=== PATIENT | female | born 1965 | race African-American/Black ===

== ENCOUNTER 2019-07-21 10:24 | Emergency (ER) | payer OTHER ==
--- OUTSIDE RECORDS SUMMARY | 2019-07-21 10:26 | XMS REPORT | Clinical Summary ---
:[address] [facility] Address [address] [place] [address] Care Team Providers Name Role Phone Rafael Dotson Primary Care Provider Allergies Active Allergy Reactions Severity Noted Date Comments Iodine And Iodide Containing Products 01/04/2015 Lidocaine 01/04/2015 Penicillins 01/04/2015 Medications Medication Sig Dispensed Refills Start Date End Date Status ALPRAZolam (XANAX) 0.25 Take 0.25 mg by 0 Active MG tablet mouth every night as needed for Anxiety. sertraline (ZOLOFT) 100 Take 100 mg by 0 Active MG tablet mouth daily. diphenhydrAMINE Take 25 mg by 0 Active (BENADRYL) 25 mg capsule mouth every 6 (six) hours as needed for Itching. cyclobenzaprine Take 10 mg by 0 Active (FLEXERIL) 10 MG tablet mouth 3 (three) times daily as needed for Muscle spasms. methylPREDNISolone follow package 1 Package 0 01/04/2015 Active (MEDROL DOSEPACK) 4 mg directions tablet Active Problems Not on file Social History Tobacco Use Types Packs/Day Years Used Date Light Tobacco Smoker Cigarettes Alcohol Use Drinks/Week oz/Week Comments No Sex Assigned at Date Recorded Not on file Job Start Date Occupation Industry Not on file Not on file Not on file Travel History Travel Start Travel End No recent travel history available. Last Filed Vital Signs Not on file Plan of Treatment Not on file Results Not on fileafter 07/20/2018 Insurance Payer Benefit Plan / Group Subscriber ID Type Phone Address HUMANA - MEDICARE MGD HU[employer] GOLD CHOICE xxxxxxxxx Maps Contracted CARE PFFS
--- OUTSIDE RECORDS SUMMARY | 2019-07-21 10:26 | XMS REPORT | Clinical Summary ---
:1965 Author Organization [facility] Address [address] [place] [address] Care Team Providers Name Role Phone Sara Finn MD Primary Care Provider Allergies Active Allergy Reactions Severity Noted Date Comments Iodine Shortness Of Breath High 01/30/2017 Latex Rash Low 01/30/2017 Lidocaine 02/22/2017 Naproxen Hives 01/30/2017 Penicillin G 02/22/2017 Medications Medication Sig Dispensed Refills Start Date End Date Status HYDROcodone-acetaminophe Take 1 tablet by 0 12/21/2016 Active n (NORCO) 10-325 mg per mouth 3 (three) tablet times a day. ziprasidone (GEODON) 80 Take 1 capsule 2 01/21/2017 Active MG capsule by mouth daily. ALPRAZolam (XANAX) 2 MG Take 2 mg by 0 Active tablet mouth nightly as needed for anxiety. zolpidem (AMBIEN) 10 mg Take 1 tablet by 2 01/21/2017 Active tablet mouth nightly. cyanocobalamin 1000 MCG Take 1,000 mcg 0 Active tablet by mouth daily. promethazine-codeine Take 5 mL by 0 Active (PHENERGAN with CODEINE) mouth every 4 6.25-10 mg/5 mL syrup (four) hours as needed for cough. Active Problems No known active problems Family History Medical History Relation Name Comments Cancer Maternal Grandfather Coronary artery disease Maternal Grandfather Alcohol abuse Mother Cancer Sister Relation Name Status Comments Maternal Grandfather Mother Sister Social History Tobacco Use Types Packs/Day Years Used Date Current Every Day Smoker 1 Smokeless Tobacco: Never Used Alcohol Use Drinks/Week oz/Week Comments No Occasionally Sex Assigned at Date Recorded Not on file Job Start Date Occupation Industry Not on file Not on file Not on file Travel History Travel Start Travel End No recent travel history available. Last Filed Vital Signs Not on file Plan of Treatment Health Maintenance Due Date Last Done Comments CERVICAL CANCER SCREENING 1984 BREAST CANCER SCREENING 2013 COLONOSCOPY SCREENING 2013 SHINGLES VACCINES (#1) 2013 INFLUENZA VACCINE 06/25/2019 Results Not on fileafter 07/20/2018
--- OUTSIDE RECORDS SUMMARY | 2019-07-21 10:27 | XMS REPORT ---
:1965 Author Organization [facility] Address [address] [place] [address] Care Team Providers Name Role Phone NONE, NONME Unavailable Unavailable DR HETAL PARISH Unavailable Unavailable MARINO SALEH Unavailable Unavailable DR ERIBERTO MURPHY Unavailable Unavailable Problems This patient has no known problems. Allergies, Adverse Reactions, Alerts This patient has no known allergies or adverse reactions. Medications This patient has no known medications. Encounters Start End Encounter Admission Attending Care Care Encounter Date/Time Date/Time Type Type Clinicians Facility Department ID 2019-05-01 2019-05-01 Outpatient C NONE, NONME [facility] [id number] 06:38:00 23:59:00 2018-09-19 2018-09-19 Emergency E HETAL PARISH [facility] [id number] 09:53:00 12:15:00 2018-08-25 2018-08-25 Emergency E THERESE [facility] [id number] 13:13:00 14:20:00 MARINO 2018-06-24 2018-06-24 Emergency E KATHERINE [facility] [id number] 16:25:00 19:15:00 ERIBERTO Results Test Description Test Time Test Comments Text Results Atomic Results Result Comments PRO TIME AND PTT *WW* 2018-09-19 11:49:00 Test Item Value Reference Range Comments PT (test code=TT) 10.8 s 9.8-13.6 INR (test code=INR) 0.9 INRH (test code=INRH) SUGGESTED THERAPEUTIC RANGE FOR INR: 2.5 - 3.5 For Patients with Prosthetic Valves or Patients with recurrent Thromboembolic Events 2.0 - 3.0 For Most Other Applications PTT (test code=PTT) 30.0 s 20.2-38.0 PTTH (test code=PTTH) To monitor the effectiveness of heparin, we offer the Anti-Xa (Heparin Assay). It can be used for either unfractionated or LMW Heparin. Order Code is ANTI-XA DRUGS OF ABUSE *WW*2018-09-19 11:35:00 Test Item Value Reference Range Comments DRUG SCRN (test code=HDOA) URINE DRUG SCREEN This is an unconfirmed screening result and should not be used for non-medical purposes CANNABINOD (test code=88C) Negative NEGATIVE AMPHETAMINE (test code=84A) Negative NEGATIVE BENZODIAZP (test code=86A) POSITIVE NEGATIVE BARBITURAT (test code=85A) Negative NEGATIVE OPIATES (test code=92B) POSITIVE NEGATIVE COCAINE (test code=87A) Negative NEGATIVE PHENCYCLID (test code=66A) Negative NEGATIVE METHADONE (test code=64A) Negative NEGATIVE DOAH (test code=DOAH) URINE DRUG CREEN CUT OFF VALUES Amphetamines 1000 ng/mL Barbituates 300 ng/mL Benzodiazepines 300 ng/mL Cocaine 300 ng/mL Opiates 300 ng/mL Phencyclidine 25 ng/mL THC 50 ng/mL Tricyclic Antidepressants 1000 ng/mL URINALYSIS *WW*2018-09-19 11:31:00 Test Item Value Reference Range Comments COLOR (test code=COLU) YELLOW YELLOW CLARITY (test code=CLA) CLEAR CLEAR GLUCOSE UR (test code=UA GLUCOSE) NEGATIVE NEGATIVE BILI UR (test code=BILE) NEGATIVE NEGATIVE KETONES UR (test code=YUDITH) NEGATIVE NEGATIVE SP GRAVITY (test code=SPGR) 1.025 1.005-1.030 PH UR (test code=PH) 6.0 4.5-8.0 PROTEIN UR (test code=PU) NEGATIVE NEGATIVE UROBIL UR (test code=UROQ) 0.2 EU/dL 0.2-1.0 NITRITE UR (test code=NITRITE) NEGATIVE NEGATIVE BLOOD UR (test code=UA BLOOD) NEGATIVE NEGATIVE LEUK ES UR (test code=LEUK) NEGATIVE NEGATIVE AUAM (test code=WAUAM) NO NO COMPREHENSIVE METABOLIC DEWEY *WW*2018-09-19 11:26:00 Test Item Value Reference Range Comments GLUCOSE (test code=06D) 105 mg/dL 75-100 SODIUM (test code=01A) 142 mmol/L 136-145 POTASSIUM (test code=01B) 4.0 mmol/L 3.6-5.1 CHLORIDE (test code=04A) 105 mmol/L 98-107 CO2 (test code=02A) 32 mmol/L 22-32 ANION GAP (test code=ANG) 9.0 mmol/L BUN (test code=05D) 11 mg/dL 7-18 CREATININE (test code=03E) 0.6 mg/dL 0.4-1.1 BUN/CREA (test code=BCR) 18 12-20 CALCIUM (test code=09D) 8.5 mg/dL 8.3-9.5 BILI TOTAL (test code=11A) 0.2 mg/dL 0.2-1.0 PROTEIN (test code=07D) 6.6 g/dL 6.4-8.2 ALBUMIN (test code=08D) 3.2 g/dL 3.5-4.8 GLOBULIN (test code=GLB) 3.3 g/dL 1.5-3.8 ALB/GLOB (test code=AGRR) 0.9 1.0-2.6 ALK PHOS (test code=35A) 75 IU/L 42-121 AST (test code=30A) 13 IU/L <=42 ALT (test code=31A) 17 IU/L <=78 CARDIAC PROFILE *WW*2018-09-19 11:17:00 Test Item Value Reference Range Comments TROPONIN I (test code=A84) <0.015 ng/mL 0.000-0.045 D-DIMER *WW*2018-09-19 11:12:00 Test Item Value Reference Range Comments D-DIMER (test code=DDI) 239 ng/mL D-DU 0-234 D-DIMER COMMENT (test *Level to rule out DVT or PE: code=DDCOM) <235 ng/mL D-DU* CBC (INCLUDES AUTOMATED DIFFERENTIAL)*[id number] 10:58:00 Test Item Value Reference Range Comments WBC (test code=WBC) 6.2 10\S\3/uL 4.5-11.0 RBC (test code=RBC) 4.56 10\S\6/uL 4.20-5.60 HGB (test code=HBG) 12.6 g/dL 12.0-15.5 HCT (test code=HCT) 39.5 % 35.0-44.0 MCV (test code=MCV) 86.6 fL 81.0-99.0 MCH (test code=MCH) 27.6 pg 27.0-31.0 MCHC (test code=MCHC) 31.9 g/dL 32.0-36.0 RDW (test code=RDW) 14.9 % 11.5-14.5 PLT (test code=PLT) 225 10\S\3/uL 130-400 MPV (test code=MPV) 10.8 fL 9.4-12.4 NEUTROP # (test code=NE#) 2.8 10\S\3/uL 1.6-8.0 LYMPH # (test code=LY#) 2.6 10\S\3/uL 1.1-3.5 MONOCYTE # (test code=MO#) 0.7 10\S\3/uL 0.0-1.1 EOSINOPH # (test code=EO#) 0.1 10\S\3/uL 0.0-0.7 BASOPHIL # (test code=BA#) 0.0 10\S\3/uL 0.0-0.3 IG # (test code=IG#) 0.01 10\S\3/uL 0.00-0.06 NRBC # (test code=NRBC#) 0.00 10\S\3/uL 0.00-0.01 NEUTROPH % (test code=NE%) 45.0 % 35.0-73.0 LYMPH % (test code=LY%) 41.5 % 20.0-55.0 MONO % (test code=MO%) 10.7 % 2.5-10.0 EOSINOPH % (test code=EO%) 2.3 % 0.0-5.0 BASOPHIL % (test code=BA%) 0.3 % 0.0-2.0 IG % (test code=IG%) 0.2 % 0.0-0.8 NRBC% (test code=NRBC%) 0.0 % 0.0-0.2 MANDIFF (test code=WMDIFF) NO NO RBC MORPH (test code=WRBCMOR) NORMAL XR CHEST 1 VIEW PORTABLE 2018-09-19 10:30:24Portable AP chest, 1 viewLocation Code: [id number] HISTORY: chest pain / sobCOMPARISON: NoneCOMMENT: The lungs are clear and well inflated. The costophrenic angles are sharp. Thecardiomediastinal silhouette is unremarkable. The bones are intact.IMPRESSION : No acute abnormalityXR ANKLE RIGHT COMPLETE 3 VIEWS 2018-08-25 14:11: 18Right ankle, 3 viewsLocation Code: [id number] HISTORY: Painful swelling of jointCOMMENTS: AP, lateral, and oblique views of the right ankle demonstrate noacute fracture or malalignment. The soft tissues are unremarkable.IMPRESSION: No acute radiographic abnormality.XR KNEE RIGHT 3 VIEWS 2018-08-25 14:10: 30Right knee, 3 viewsLocation Code: [id number] HISTORY: Painful swelling of jointCOMMENTS: AP, lateral, and oblique views of the right knee demonstrate no acutefracture or malalignment. There is marked joint space narrowing withsubchondral sclerosis and osteophyte formation. The soft tissues areunremarkable.IMPRESSION: Moderate to severe tricompartmental osteoarthritis with otherwiseno acute radiographic abnormality.U/S VENOUS DOPPLER ULICES LOW EXT* *2018-06-24 18:42:30EXAM: Bilateral lower extremity venous DopplerHISTORY: R60.0: LOCALIZED EDEMATECHNIQUE: Grayscale real-time B-mode imaging with color flow and spectralflow Doppler analysis was performed of bilateral lower extremities.COMPARISON: NoneFINDINGS: Limited exam due to body habitus.There is normal compressibility with no evidence of thrombus in the visualizedvenous structures of bilateral lower extremities.The vessels imaged include bilateral common femoral, superficial femoral,popliteal, proximal profunda femoral, and greater saphenous veins. The peroneal and posterior tibial veins were seen as well.IMPRESSION:No evidence of deep venous thrombosis within the visualized venous structuresof bilateral lower extremities.D-DIMER *WW*2018-06-24 17:58:00 Test Item Value Reference Range Comments D-DIMER (test code=DDI) <200 ng/mL D-DU 0-234 D-DIMER COMMENT (test *Level to rule out DVT or PE: code=DDCOM) <235 ng/mL D-DU* PRO TIME AND PTT *WW*2018-06-24 17:43:00 Test Item Value Reference Range Comments PT (test code=TT) 10.0 s 9.8-13.6 INR (test code=INR) 0.9 INRH (test code=INRH) SUGGESTED THERAPEUTIC RANGE FOR INR: 2.5 - 3.5 For Patients with Prosthetic Valves or Patients with recurrent Thromboembolic Events 2.0 - 3.0 For Most Other Applications PTT (test code=PTT) 30.3 s 20.2-38.0 PTTH (test code=PTTH) To monitor the effectiveness of heparin, we offer the Anti-Xa (Heparin Assay). It can be used for either unfractionated or LMW Heparin. Order Code is ANTI-XA CARDIAC PROFILE *WW*2018-06-24 17:42:00 Test Item Value Reference Range Comments TROPONIN I (test code=A84) <0.015 ng/mL 0.000-0.045 CKMB (test code=A49) 1.0 ng/mL <=3.6 CPK (test code=32A) 123 IU/L 26-192 BRAIN NATRIURETIC PROTEIN *WW*2018-06-24 17:42:00 Test Item Value Reference Range Comments proBNP (test code=PBNP) 70 pg/mL 0-125 COMPREHENSIVE METABOLIC DEWEY *WW*2018-06-24 17:39:00 Test Item Value Reference Range Comments GLUCOSE (test code=06D) 131 mg/dL 75-100 SODIUM (test code=01A) 143 mmol/L 136-145 POTASSIUM (test code=01B) 3.6 mmol/L 3.6-5.1 CHLORIDE (test code=04A) 106 mmol/L 98-107 CO2 (test code=02A) 32 mmol/L 22-32 ANION GAP (test code=ANG) 8.8 mmol/L BUN (test code=05D) 9 mg/dL 7-18 CREATININE (test code=03E) 0.6 mg/dL 0.4-1.1 BUN/CREA (test code=BCR) 15 12-20 CALCIUM (test code=09D) 8.4 mg/dL 8.3-9.5 BILI TOTAL (test code=11A) 0.2 mg/dL 0.2-1.0 PROTEIN (test code=07D) 6.6 g/dL 6.4-8.2 ALBUMIN (test code=08D) 3.1 g/dL 3.5-4.8 GLOBULIN (test code=GLB) 3.5 g/dL 1.5-3.8 ALB/GLOB (test code=AGRR) 0.9 1.0-2.6 ALK PHOS (test code=35A) 70 IU/L 42-121 AST (test code=30A) 13 IU/L <=42 ALT (test code=31A) 20 IU/L <=78 CBC (INCLUDES AUTOMATED DIFFERENTIAL)*[id number] 17:36:00 Test Item Value Reference Range Comments WBC (test code=WBC) 6.6 10\S\3/uL 4.5-11.0 HGB (test code=HBG) 11.8 g/dL 12.0-15.5 HCT (test code=HCT) 37.0 % 35.0-44.0 MCV (test code=MCV) 87.7 fL 81.0-99.0 MCH (test code=MCH) 28.0 pg 27.0-31.0 MCHC (test code=MCHC) 31.9 g/dL 32.0-36.0 RDW (test code=RDW) 15.7 % 11.5-14.5 PLT (test code=PLT) 197 10\S\3/uL 130-400 MPV (test code=MPV) 10.9 fL 9.4-12.4 NEUTROP # (test code=NE#) 3.2 10\S\3/uL 1.6-8.0 LYMPH # (test code=LY#) 2.5 10\S\3/uL 1.1-3.5 MONOCYTE # (test code=MO#) 0.8 10\S\3/uL 0.0-1.1 EOSINOPH # (test code=EO#) 0.2 10\S\3/uL 0.0-0.7 BASOPHIL # (test code=BA#) 0.0 10\S\3/uL 0.0-0.3 IG # (test code=IG#) 0.02 10\S\3/uL 0.00-0.06 NRBC # (test code=NRBC#) 0.00 10\S\3/uL 0.00-0.01 NEUTROPH % (test code=NE%) 47.9 % 35.0-73.0 LYMPH % (test code=LY%) 37.7 % 20.0-55.0 MONO % (test code=MO%) 11.5 % 2.5-10.0 EOSINOPH % (test code=EO%) 2.3 % 0.0-5.0 BASOPHIL % (test code=BA%) 0.3 % 0.0-2.0 IG % (test code=IG%) 0.3 % 0.0-0.8 NRBC% (test code=NRBC%) 0.0 % 0.0-0.2 MANDIFF (test code=WMDIFF) NO NO RBC MORPH (test code=WRBCMOR) NORMAL URINALYSIS *WW*2018-06-24 17:28:00 Test Item Value Reference Range Comments COLOR (test code=COLU) YELLOW YELLOW CLARITY (test code=CLA) CLEAR CLEAR GLUCOSE UR (test code=UA GLUCOSE) NEGATIVE NEGATIVE BILI UR (test code=BILE) NEGATIVE NEGATIVE KETONES UR (test code=YUDITH) NEGATIVE NEGATIVE SP GRAVITY (test code=SPGR) 1.025 1.005-1.030 PH UR (test code=PH) 6.0 4.5-8.0 PROTEIN UR (test code=PU) NEGATIVE NEGATIVE UROBIL UR (test code=UROQ) 0.2 EU/dL 0.2-1.0 NITRITE UR (test code=NITRITE) NEGATIVE NEGATIVE BLOOD UR (test code=UA BLOOD) NEGATIVE NEGATIVE LEUK ES UR (test code=LEUK) NEGATIVE NEGATIVE AUAM (test code=WAUAM) NO NO
--- OUTSIDE RECORDS SUMMARY | 2019-07-21 10:27 | XMS REPORT | Summary of Care ---
:1965 Author Name YAMILETH Meza, DAYNA Address Unavailable Unavailable , Care Team Providers Name Role Phone TRINIDAD Meza, BILLIE Unavailable Unavailable YADY Meza, CHRISTI Unavailable Unavailable YAMILETH Meza, DAYNA Unavailable Unavailable TOÑITO Meza, ORA Unavailable Unavailable TRINIDAD SMITH, BILLIE Unavailable Unavailable YADY SMITH DE, CHRISTI Unavailable Unavailable YAMILETH CUETO MD DE, DAYNA Merchant Unavailable Unavailable Omar Avila MD Unavailable Unavailable MARYAN CARD FILER DE, TREVER Live Unavailable Unavailable DUTCH DO, ILSA R Unavailable Unavailable BIJOU CARD FILER, JANENAE F Unavailable Unavailable BOLANOS SENIOR WIND TURBINE TECHNICIAN, KLEVER Veloz Unavailable Unavailable BIJOU N.P., JERDAMASO Unavailable Unavailable YAO CARD FILER, ANIKET K Unavailable Unavailable Unavailable Unavailable Unavailable Functional Status Name Dates Details Functional status health issues are not documented Status: Name Dates Details Cognitive status health issues are not documented Status: Problems Name Dates Details Caloric malnutrition (263.9, E46) Status: Active Lumbar strain (847.2, S39.012A) Status: Active Sciatic pain, left (724.3, M54.32) Status: Active Acid reflux (530.81, K21.9) Status: Active Right wrist pain (719.43, M25.531) Status: Active Right knee pain (719.46, M25.561) Status: Active History of hepatitis C (V12.09, Z86.19) Status: Active Need for hepatitis A vaccination (V05.3, Z23) Status: Active Need for hepatitis B vaccination (V05.3, Z23) Status: Active Cervical radiculopathy (723.4, M54.12) Status: Active Influenza vaccination declined (V64.06, Z28.21) Status: Active Influenza vaccination declined (V64.06, Z28.21) Status: Active Sore throat (462, J02.9) Status: Active Acute streptococcal pharyngitis (034.0, J02.0) Status: Active Mild intermittent asthma with acute exacerbation (493.92, J45.21) Status: Active Primary localized osteoarthritis of right knee (715.16, M17.11) Status: Active Viral gastroenteritis (008.8, A08.4) Status: Active Body aches (780.96, R52) Status: Active Fatigue (780.79, R53.83) Status: Active Anxiety (300.00, F41.9) Status: Active Bipolar disorder (296.80, F31.9) Status: Active Failed total left knee replacement, 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 Quantity: 30 Refills: 3 CHRISTI CONTHE M.D. Start : 15-May-2017 Active Zolpidem Tartrate 10 MG Oral Tablet TAKE 1 TABLET BY MOUTH AT BEDTIME Quantity: 30 Refills: 0 CHRISTI CONTEH M.D. Start : 23-Feb-2019 Active ALPRAZolam 1 MG Oral Tablet TAKE ONE-HALF TO 1 TABLET BY MOUTH TWICE DAILY Quantity: 60 Refills: 1 CHRISTI CONTEH M.D. Start : 29-May-2017 Active FLUoxetine HCl - 40 MG Oral Capsule TAKE 1 CAPSULE DAILY Quantity: 30 Refills: 3 CHRISTI CONTEH M.D. Start : 06-Jun-2017 Active Nystop 572579 UNIT/GM External Powder APPLY 2- 3 TIMES EVERY DAY TO AFFECTED AREA(S). AFTER COMPLETION OF CREAM Quantity: 180 Refills: 0 BILLIE ABDI M.D. Start : 28-Nov-2018 Active Fluocinolone Acetonide 0.025 % External Cream APPLY SPARINGLY TO AFFECTED AREA(S) TWICE DAILY Quantity: 1 Refills: 0 DAYNA CARSON M.D. Start : 15-Jan-2018 Active 60 GM Tube Pennsaid 2 % Transdermal Solution 2 PUMPS TWICE DAILY TO THE EFFECTED AREA Quantity: 1 Refills: 0 ORA SIBLEY M.D. Start : 18-Jun-2018 Active 112 GM Pump Btl ProAir HFA 108 (90 Base) MCG/ACT Inhalation Aerosol Solution INHALE 1 TO 2 PUFFS EVERY 4 TO 6 HOURS NEEDED. Quantity: 1 Refills: 2 R.N.Active 8.5 GM Inhaler Combivent Respimat 20-100 MCG/ACT Inhalation Aerosol Solution INHALE 2 PUFFS DAILY Refills: 0 R.N.Active 4 GM Inhaler Allergies and Adverse Reactions Name Dates Details Adhesive Tape TAPE (Allergy) Status: Active Iodinated Contrast Media (Allergy) Status: Active Latex Gloves MISC (Allergy) Status: Active Naproxen TABS (Allergy) Status: Active Penicillins (Allergy) Status: Active Procaine HCl SOLN (Allergy) Status: Active Past Medical History Name Dates Details History of Acute recurrent maxillary sinusitis (461.0, J01.01) Status: Resolved History of Acute suppurative otitis media of left ear with spontaneous rupture of tympanic membrane, recurrence not specified (382.01, H66.012) Status: Resolved History of Antibiotic-induced yeast infection (112.9, B37.9) Status: Resolved History of Body aches (780.96, R52) Status: Resolved History of Chronic pruritic rash in adult (698.8, L29.8) Status: Resolved History of cough Status: Resolved History of Encounter to establish care (V65.8, Z76.89) Status: Resolved History of Failed total knee, left, sequela (909.3, T84.093S) Status: Resolved History of Failed total knee, left, subsequent encounter (V58.89, T84.093D) Status: Resolved History of Follow up (V67.9, Z09) Status: Resolved History of hepatitis B virus infection (V12.09, Z86.19) Status: Resolved History of intestinal malabsorption (V12.79, Z87.19) Status: Resolved History of Left lower quadrant abdominal pain of unknown etiology (789.04, R10.32) Status: Resolved History of malnutrition (V12.1, Z86.39) Status: Resolved History of Need for Tdap vaccination (V06.1, Z23) Status: Resolved History of persistent cough (V12.69, Z87.09) Status: Resolved History of Preoperative clearance (V72.84, Z01.818) Status: Resolved History of Routine lab draw (V72.60, Z01.89) Status: Resolved History of screening mammography (V15.89, Z92.89) Status: Resolved History of screening mammography (V15.89, Z92.89) Status: Resolved History of sore throat (V12.60, Z87.09) Status: Resolved History of tinea cruris (V12.09, Z86.19) Status: Resolved History of Trapezius muscle spasm (728.85, M62.838) Status: Resolved History of Vulvar itching (698.1, L29.2) Status: Resolved History of Well woman exam (V72.31, Z01.419) Status: Resolved History of Wrist pain, acute, right (719.43, M25.531) Status: Resolved Procedures Procedure Dates Details History of Shoulder replacement Completed History of Back surgery Completed History of Total hysterectomy abdominal Completed History of Knee replacement Completed Immunization Name Dates Details Tdap (Boostrix) on: 06-Aug-2017 Lot #: [id number] Engerix-B 10 MCG/0.5ML Intramuscular Injectable on: 07-Oct-2018 Lot #: [id number] Hepatitis A, adult on: 07-Oct-2018 Lot #: [id number] Family History Name Dates Details Family history of alcohol abuse (V61.41, Z81.1) Comments: Maternal Relatives Status: Active Family history of alcohol abuse (V61.41, Z81.1) Comments: Paternal Relatives Status: Active Name Dates Details Family history of rheumatoid arthritis (V17.7, Z82.61) Status: Active Name Dates Details Family history of neoplasm of brain (V19.8, Z84.89) Status: Active Family history of malignant neoplasm of prostate (V16.42, Z80.42) Status: Active Name Dates Details Family history of Anxiety (300.00, F41.9) Status: Active Family history of malignant neoplasm of breast (V16.3, Z80.3) Status: Active Social History Name Dates Details - Status: Name Dates Details Smoker. current status unknown Vital Signs Date Test Result Details No Known Vitals to report Results Date Description Value Details Results not documented Plan of Care Name Dates Details Planned Observations Planned Goals not documented Planned Encounters Appointment; DAYNA CARSON M.D. On: 16-Jul-2019 11:15 Appointment; DAYNA CARSON M.D. On: 17-Sep-2019 10:45 Instructions Name Dates Details Instructions not documented Encounters Appointment; BILLIE ABDI M.D. On: 09-Jul-2017 11:15 Encounter Diagnosis: Problem not documented Appointment; ANIKET CASTELLANOS, PHD On: 10-Jul-2017 10:30 Encounter Diagnosis: Problem not documented Appointment; LIAN SAHA M.D. On: 12-Jul-2017 10:00 Encounter Diagnosis: Problem not documented Appointment; LIZ SEAY P.A. On: 02-Aug-2017 10:15 Encounter Diagnosis: Problem not documented Appointment; CHRISTI CONTEH M.D. On: 05-Aug-2017 8:00 Encounter Diagnosis: Problem not documented Appointment; BILLIE ABDI M.D. On: 06-Aug-2017 9:30 Encounter Diagnosis: Problem not documented Appointment; ANIKET CASTELLANOS, PHD On: 06-Aug-2017 10:30 Encounter Diagnosis: Problem not documented Appointment; GIOVANNY CLEVELAND D.O. On: 16-Aug-2017 9:00 Encounter Diagnosis: Problem not documented Appointment; DAYNA CARSON M.D. On: 28-Aug-2017 10:30 Encounter Diagnosis: Problem not documented Appointment; LIAN SAHA M.D. On: 13-Sep-2017 9:00 Encounter Diagnosis: Problem not documented Appointment; ORA SIBLEY M.D. On: 23-Sep-2017 9:30 Encounter Diagnosis: Problem not documented Appointment; CHRISTI CONTEH M.D. On: 07-Oct-2017 9:30 Encounter Diagnosis: Problem not documented Appointment; DAYNA CARSON M.D. On: 09-Oct-2017 10:30 Encounter Diagnosis: Problem not documented Appointment; BILLIE ABDI M.D. On: 14-Oct-2017 11:00 Encounter Diagnosis: Problem not documented
[2019-07-21] MEDS ORDERED: HYDROCODONE/APAP 10/325 TAB ONE (11:08)
--- NOTE | 2019-07-21 12:36 | RAD REPORT ---
EXAM DESCRIPTION: Shoulder Right 2 View - 07/21/2019 12:31 pm CLINICAL HISTORY: Fall, right shoulder and upper extremity pain COMPARISON: None. TECHNIQUE: Internal and external rotation views of the right shoulder were obtained. FINDINGS: There is no fracture or dislocation. AC joint is normal in appearance. No acute or suspic ious findings. IMPRESSION: Negative two-view right shoulder examination.
--- NOTE | 2019-07-21 12:37 | RAD REPORT ---
EXAM DESCRIPTION: RAD - Humerus Right - 07/21/2019 12:31 pm CLINICAL HISTORY: Fall, right arm pain COMPARISON: None. FINDINGS: No fracture is identified. There is no dislocation or periosteal reaction noted. No foreig n body or other soft tissue abnormality. Elbow joint is partially obscured but incorporated into the forearm report. IMPRESSION: Negative right humerus examination.
--- NOTE | 2019-07-21 12:38 | RAD REPORT ---
EXAM DESCRIPTION: RAD - Wrist Right 3 View - 07/21/2019 12:31 pm CLINICAL HISTORY: PAIN Pain COMPARISON: <Comparisons> FINDINGS: Linear lucency is seen along the radial aspect of the distal radius compatible with a nond isplaced fracture. No dislocation evident.
--- NOTE | 2019-07-21 12:42 | RAD REPORT ---
EXAM DESCRIPTION: RAD - Forearm Right - 07/21/2019 12:31 pm CLINICAL HISTORY: PAIN Trauma, pain COMPARISON: No comparisons FINDINGS: Linear nondisplaced intra-articular fracture is seen along the radial aspect distal radius . Soft tissue swelling is present. No dislocation.
--- NOTE | 2019-07-21 12:43 | RAD REPORT ---
EXAM DESCRIPTION: RAD - Femur Left - 07/21/2019 12:36 pm CLINICAL HISTORY: PAIN COMPARISON: No comparisons FINDINGS: [id number] osteoarthritis of the left hip is seen. No fracture or dislocation seen.
--- NOTE | 2019-07-21 12:46 | RAD REPORT ---
EXAM DESCRIPTION: RAD - Pelvis - 07/21/2019 12:37 pm CLINICAL HISTORY: BLUNT TRAUMA COMPARISON: No comparisons FINDINGS: No acute fracture or dislocation seen. No AVN pattern observed. Hardware is present lower lumbar spine.
--- NOTE | 2019-07-21 12:58 | ER ---
Nurse's Notes [facility] Name: Lupe Jackson Age: 53 yrs Sex: Female : 1965 Arrival Date: 07/21/2019 Time: 10:28 Bed 27 Private MD: Unknown, Unknown Diagnosis: Acute, non-displaced intra-articular fracture of right distal radius, closed Presentation: 07/21 10:30 Presenting complaint: Patient states: I fell down about 5 concrete steps. At the bottom la1 I ran in to a pole for the carport and broke it. Denies head or neck trauma, denies LOC, CO pain in whole right arm starting with wrist and back of left thigh. Transition of care: patient was not received from another setting of care. Onset of symptoms was July 21, 2019. Risk Assessment: Do you want to hurt yourself or someone else? Patient reports no desire to harm self or others. Initial Sepsis Screen: Does the patient meet any 2 criteria? No. Patient's initial sepsis screen is negative. Does the patient have a suspected source of infection? No. Patient's initial sepsis screen is negative. Care prior to arrival: None. 10:30 Method Of Arrival: Wheelchair la1 10:30 Acuity: OLEGARIO 3 la1 11:53 Mechanism of Injury: Fall down 5 steps. Trauma event details: Injury occurred in the [address] 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 LMP N/A - Hysterectomy la1 Trauma Activation: Not Applicable Physician: ED Physician; Name: ; Notified At: ; Arrived At: Physician: General Surgeon; Name: ; Notified At: ; Arrived At: Physician: Radiology; Name: ; Notified At: ; Arrived At: Physician: Respiratory; Name: ; Notified At: ; Arrived At: Physician: Lab; Name: ; Notified At: ; Arrived At: Historical: - Allergies: 10:34 PENICILLINS; la1 10:34 Iodine; la1 10:34 Latex, Natural Rubber; la1 10:34 Celebrex; la1 10:34 Tizanidine; la1 - PMHx: 10:34 Bipolar disorder; Depression; Schizophrenia; Myocardial infarction; la1 - PSHx: 10:34 back, knee sx; la1 - Immunization history:: Adult Immunizations up to date. - Social history:: Smoking status: Patient/guardian denies using tobacco. - Immunization history: Last tetanus immunization: n/a. - Ebola Screening: : No symptoms or risks identified at this time. - Family history:: not pertinent. - Hospitalizations: : No recent hospitalization is reported. Screenin:35 Abuse screen: Denies threats or abuse. Nutritional screening: No deficits noted. tw2 Tuberculosis screening: No symptoms or risk factors identified. Fall Risk None identified. Primary Survey: 10:38 NO uncontrolled hemorrhage observed. A: The patient is alert. A: Airway: patent. tw2 Breathing/Chest: Respiratory pattern: regular, Respiratory effort: spontaneous, unlabored, Breath sounds: clear, bilaterally. Chest inspection: symmetrical rise and fall of the chest. Circulation: Heart tones present. Skin temperature: warm, dry. Disability Alert. Exposure/Environment: All clothing and personal items were removed. Forensic evidence collection is not deemed to be indicated at this time. Items placed in patient belonging bag. There is no evidence of uncontrolled external bleeding. 11:53 Reassessment Airway Airway Patent Breathing/Chest Respiratory pattern Regular tw2 Respiratory effort Spontaneous Unlabored Breath sounds Clear Chest inspection Symmetrical Circulation Heart tones Present Color [place] Temperature Warm Dry Disability Alert. Secondary Survey: 11:43 HEENT: No deficits noted. Gastrointestinal: No deficits noted. : No signs and/or tw2 symptoms were reported regarding the genitourinary system. Musculoskeletal: Swelling present in right wrist. Assessment: 10:35 General: Appears uncomfortable, obese, Behavior is calm, cooperative, appropriate for tw2 age. Pain: Complains of pain in right arm. Neuro: Level of Consciousness is awake, alert, obeys commands, Oriented to person, place, time, situation. Cardiovascular: Heart tones S1 S2 Capillary refill < 3 seconds Patient's skin is warm and dry. Respiratory: Airway is patent Respiratory effort is even, unlabored, Respiratory pattern is regular, symmetrical, Breath sounds are clear bilaterally. GI: No signs and/or symptoms were reported involving the gastrointestinal system. Abdomen is round obese, Bowel sounds present X 4 quads. : No signs and/or symptoms were reported regarding the genitourinary system. EENT: No signs and/or symptoms were reported regarding the EENT system. Derm: No signs and/or symptoms reported regarding the dermatologic system. Musculoskeletal: Range of motion: limited in right wrist Reports pain in right arm. 10:35 Reassessment: pt refused ice pack at this time, pillow offered and given. tw2 Vital Signs: 10:34 BP 144 / 106; Pulse 89; Resp 16; Temp 97.6; Pulse Ox 98% on R/A; Weight 130.18 kg; la1 Height 5 ft. 4 in. (162.56 cm); Pain 9/10; 12:00 BP 140 / 92; Pulse 91; Resp 17; Pulse Ox 99% on R/A; tw2 14:05 BP 133 / 88; Pulse 87; Resp 17; Pulse Ox 99% on R/A; tw2 10:34 Body Mass Index 49.26 (130.18 kg, 162.56 cm) la1 [place] Coma Score: 10:45 Eye Response: spontaneous(4). Verbal Response: oriented(5). Motor Response: obeys tw2 commands(6). Total: 15. Trauma Score (Adult): 10:35 Eye Response: spontaneous(1); Verbal Response: oriented(1); Motor Response: obeys tw2 commands(2); Systolic BP: > 89 mm Hg(4); Respiratory Rate: 10 to 29 per min(4); Maryana Score: 15; Trauma Score: 12 ED Course: 10:28 Patient arrived in ED. ag5 10:28 Unknown, Unknown is Private Physician. ag5 10:32 Triage completed. la1 10:34 Arm band placed on left wrist. la1 10:35 Bed in low position. Call light in reach. tw2 10:35 Patient maintains SpO2 saturation greater than 95% on room air. tw2 10:36 Gene Timmons MD is Attending Physician. rn 11:06 Jessie Mckeon RN is Primary Nurse. tw2 11:52 Thermoregulation: pt refused warm blanket. tw2 12:33 XRAY Shoulder RIGHT 2 view In Process Unspecified. EDMS 12:33 XRAY Humerus RIGHT In Process Unspecified. EDMS 12:33 XRAY Forearm RIGHT In Process Unspecified. EDMS 12:33 XRAY Wrist RIGHT 3 view In Process Unspecified. EDMS 12:33 XRAY Pelvis In Process Unspecified. EDMS 12:33 XRAY Femur LEFT In Process Unspecified. EDMS 12:56 Sulaiman Sesay MD is Referral Physician. rn 13:31 Orthoglass splint: Sugar tong splint applied on right arm. Sling applied to right arm. lt1 14:05 No provider procedures requiring assistance completed. Patient did not have IV access tw2 during this emergency room visit. Administered Medications: 11:10 Drug: [place] 10 mg-325 mg 1 tabs Route: PO; tw2 11:11 Follow up: RASS 0 at 1110 upon administration tw2 12:09 Follow up: Response: No adverse reaction; Pain is unchanged, physician notified; RASS: tw2 Alert and Calm (0) Intake: 10:45 PO: 30ml (Water); Total: 30ml. tw2 Outcome: 12:57 Discharge ordered by . rn 14:05 Patient left the ED. tw2 14:05 Discharged to home ambulatory, with family. tw2 14:05 Condition: stable 14:05 Patient's length of stay in the Emergency Department was greater than 2 hours. d/t imagingPatient's length of stay extended due to 14:05 Discharge instructions given to patient, family, Instructed on discharge instructions, tw2 follow up and referral plans. no drinking with medication, no driving heavy equipment, medication usage, splint care Demonstrated understanding of instructions, follow-up care, medications, splint care, Prescriptions given X 1. Signatures: Dispatcher [employer] EDMS Gene Timmons MD MD rn Attema, Lee, RN RN la1 Jessie Mckeon RN RN tw2 Sami Monge Leah lt1
--- NOTE | 2019-07-21 12:59 | EDPHYS ---
Physician Documentation [facility] Name: Lupe Jackson Age: 53 yrs Sex: Female : 1965 Arrival Date: 07/21/2019 Time: 10:28 Bed 27 Private MD: Unknown, Unknown ED Physician Gene Timmons HPI: 07/21 11:13 This 53 yrs old Black Female presents to ER via Wheelchair with complaints of Fall rn Injury, Wrist Injury, Leg Injury. 11:13 Details of fall: The patient fell from a height, down approximately 5 stairs. rn Associated injuries: The patient sustained right wrist, left leg. Severity of symptoms: At their worst the symptoms were moderate, in the emergency department the symptoms are unchanged. The patient has not experienced similar symptoms in the past. Reports lost footing, fell approx five steps, hit concrete floor and pole with outstretched hand, reports majority of pain to right wrist. Denies head injury. No neck or new back pain. Denies sob/abd pain. Reports scaped left thigh, no bony pain. Not on blood thinners. . 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 - Social history:: Smoking status: Patient/guardian denies using tobacco. - Immunization history: Last tetanus immunization: n/a. - Ebola Screening: : No symptoms or risks identified at this time. - Family history:: not pertinent. - Hospitalizations: : No recent hospitalization is reported. ROS: 11:13 Constitutional: Negative for fever, chills, and weight loss, Eyes: Negative for injury, rn pain, redness, and discharge, Neck: Negative for injury, pain, and swelling, Cardiovascular: Negative for chest pain, palpitations, and edema, Respiratory: Negative for shortness of breath, cough, wheezing, and pleuritic chest pain, Abdomen/GI: Negative for abdominal pain, nausea, vomiting, diarrhea, and constipation, Back: Negative for injury and pain, MS/Extremity: + right wrist pain and swelling, + left posterior thigh pain and abrasion. Neuro: Negative for headache, weakness, numbness, tingling, and seizure. Exam: 11:13 Constitutional: This is a well developed, well nourished patient who is awake, alert, rn and in no acute distress. Head/Face: Normocephalic, atraumatic. Eyes: Pupils equal round and reactive to light, extra-ocular motions intact. Lids and lashes normal. Conjunctiva and sclera are non-icteric and not injected. Cornea within normal limits. Periorbital areas with no swelling, redness, or edema. Neck: Trachea midline, no thyromegaly or masses palpated, and no cervical lymphadenopathy. Supple, full range of motion without nuchal rigidity, or vertebral point tenderness. No Meningismus. Chest/axilla: Normal chest wall appearance and motion. Nontender with no deformity. No lesions are appreciated. Cardiovascular: Regular rate and rhythm. No pulse deficits. Respiratory: Lungs have equal breath sounds bilaterally, clear to auscultation. No increased work of breathing, no retractions or nasal flaring. Abdomen/GI: soft, non-tender Back: No spinal tenderness. No costovertebral tenderness. Full range of motion. MS/ Extremity: Pulses equal, no cyanosis. Neurovascular intact. + painful ROM from right shoulder to right wrist, + focal swelling only about right wrist with bony tenderness. + 8cm linear abrasion to left posterior thigh, no laceration, no hip or bony tenderness. Neuro: Awake and alert, GCS 15, oriented to person, place, time, and situation. Cranial nerves II-XII grossly intact. Motor strength 5/5 in all extremities. Sensory grossly intact. Cerebellar exam normal. Vital Signs: 10:34 BP 144 / 106; Pulse 89; Resp 16; Temp 97.6; Pulse Ox 98% on R/A; Weight 130.18 kg; la1 Height 5 ft. 4 in. (162.56 cm); Pain 9/10; 12:00 BP 140 / 92; Pulse 91; Resp 17; Pulse Ox 99% on R/A; tw2 14:05 BP 133 / 88; Pulse 87; Resp 17; Pulse Ox 99% on R/A; tw2 10:34 Body Mass Index 49.26 (130.18 kg, 162.56 cm) la1 [place] Coma Score: 10:45 Eye Response: spontaneous(4). Verbal Response: oriented(5). Motor Response: obeys tw2 commands(6). Total: 15. Trauma Score (Adult): 10:35 Eye Response: spontaneous(1); Verbal Response: oriented(1); Motor Response: obeys tw2 commands(2); Systolic BP: > 89 mm Hg(4); Respiratory Rate: 10 to 29 per min(4); Maryana Score: 15; Trauma Score: 12 MDM: 10:36 Patient medically screened. rn 12:54 Differential diagnosis: contusion, fracture, sprain, strain. Data reviewed: vital rn signs, nurses notes, radiologic studies, plain films, and as a result, I will discharge patient. Test interpretation: by ED physician or midlevel provider: plain radiologic studies, Xray right wrist shows non-displaced fracture distal radius, intraarticular. . Counseling: I had a detailed discussion with the patient and/or guardian regarding: the historical points, exam findings, and any diagnostic results supporting the discharge/admit diagnosis, radiology results, the need for outpatient follow up, to return to the emergency department if symptoms worsen or persist or if there are any questions or concerns that arise at home. Special discussion: I discussed with the patient/guardian in detail that at this point there is no indication for admission to the hospital. It is understood, however, that if the symptoms persist or worsen the patient needs to return immediately for re-evaluation. Based on the history and exam findings, there is no indication for further emergent testing or inpatient evaluation. I discussed with the patient/guardian the need to see the orthopedic surgeon for further evaluation of the symptoms. 07/21 10:44 Order name: XRAY Shoulder RIGHT 2 view; Complete Time: 12:52 rn 07/21 10:44 Order name: XRAY Humerus RIGHT; Complete Time: 12:52 rn 07/21 10:44 Order name: XRAY Forearm RIGHT; Complete Time: 12:52 rn 07/21 10:44 Order name: XRAY Wrist RIGHT 3 view; Complete Time: 12:52 rn 07/21 10:44 Order name: XRAY Pelvis; Complete Time: 12:52 rn 07/21 10:44 Order name: XRAY Femur LEFT; Complete Time: 12:52 rn 07/21 12:53 Order name: Splint - Sugar Tong - Forearm: right wrist/forearm; Complete Time: 14:04 rn 07/21 13:19 Order name: Sling; Complete Time: 14:04 tw2 Administered Medications: 11:10 Drug: [place] 10 mg-325 mg 1 tabs Route: PO; tw2 11:11 Follow up: RASS 0 at 1110 upon administration tw2 12:09 Follow up: Response: No adverse reaction; Pain is unchanged, physician notified; RASS: tw2 Alert and Calm (0) Disposition: 07/21/19 12:57 Discharged to Home. Impression: Acute, non-displaced intra-articular fracture of right distal radius, closed. - Condition is Stable. - Discharge Instructions: Wrist Fracture Treated With Immobilization. - Prescriptions for Tylenol- Codeine #3 300-30 mg Oral Tablet - take 1 tablet by ORAL route every 6 hours As needed; 20 tablet. - Medication Reconciliation Form, Thank You Letter, Antibiotic Education, Prescription Opioid Use form. - Follow up: Sulaiman Sesay MD; When: 5 - 6 days; Reason: Recheck today's complaints, Re-evaluation by your physician. - Problem is new. - Symptoms have improved. Signatures: Dispatcher [employer] EDMS Gene Timmons MD MD rn Attema, Lee, RN RN la1 Jessie Mckeon RN RN tw2 Corrections: (The following items were deleted from the chart) 14:05 12:57 07/21/2019 12:57 Discharged to Home. Impression: Acute, non-displaced tw2 intra-articular fracture of right distal radius, closed. Condition is Stable. Forms are Medication Reconciliation Form, Thank You Letter, Antibiotic Education, Prescription Opioid Use. Follow up: Dr. Sulaiman Sesay; When: 5 - 6 days; Reason: Recheck today's complaints, Re-evaluation by your physician. Problem is new. Symptoms have improved. rn
== END 2019-07-21 14:05 | disposition home or self-care (01) ==
LOC: ER 10:24
PROC: 2W3CX1Z Immobilization of Right Lower Arm using Splint (ICD-10-PCS; principal; 2019-07-21)
DX: S52.571A Other intraarticular fracture of lower end of right radius, initial encounter for closed fracture (principal); W10.9XXA Fall (on) (from) unspecified stairs and steps, initial encounter; Y93.9 Activity, unspecified; Y92.9 Unspecified place or not applicable; Z88.0 Allergy status to penicillin; Z88.8 Allergy status to other drugs, medicaments and biological substances; Z91.040 Latex allergy status; Z91.048 Other nonmedicinal substance allergy status
CPT/HCPCS: 72170; 99284